=== PATIENT | female | born 2000 | race Hispanic/Latino ===

== ENCOUNTER 2022-05-21 22:13 | Emergency (ER) | payer MEDICAID, OTHER ==
[~2022-05-21] VITALS: Ht 152.4 cm; Wt 59.9 kg
[2022-05-21 22:40] LABS: BILIRUBIN,URINE NEGATIVE (NEGATIVE); COLOR,URINE YELLOW (YELLOW); GLUCOSE, URINE (UA) NEGATIVE (NEGATIVE); KETONES,URINE NEGATIVE (NEGATIVE); LEUKOCYTE ESTERASE ,URINE MODERATE (NEGATIVE); NITRATE,URINE NEGATIVE (NEGATIVE); OCCULT BLOOD,URINE LARGE (NEGATIVE); PROTEIN,URINE 30 mg/dL (NEGATIVE); UROBILINOGEN,URINE 0.2 mg/dL (0.2-1.0)
[2022-05-21 22:43] LABS: APPEARANCE,URINE HAZY (CLEAR)
[2022-05-21 22:57] LABS: BACTERIA,URINE Few /HPF (None Seen); SQUAMOUS EPITHELIAL CELL,UR 0-2 /HPF (0-2)
[2022-05-21] MEDS ORDERED: PHEN-847 PO (23:06)
[2022-05-21] MEDS ORDERED: IBUP-2070 PO (23:06)
[2022-05-21] MEDS ORDERED: CEPH500B PO (23:06)
[2022-05-21] MEDS ORDERED: LIDOCAINE HCL 1% 10 ML VIAL ONE (23:07)
[2022-05-21] MEDS ORDERED: IBUPROFEN 600 MG TABLET ONE (23:07)
[2022-05-21] MEDS ORDERED: CEFTRIAXONE 1G VIAL ONE (23:07)
[2022-05-21] MEDS ORDERED: PHENAZOPYRIDINE HCL 200 MG TABLET ONE (23:09)
[2022-05-21 23:26] VITALS: BP 105/79
[2022-05-21] MEDS ORDERED: IBUPROFEN 600 MG TABLET PO ONE (23:30)
[2022-05-21] MEDS ORDERED: PHENAZOPYRIDINE HCL 200 MG TABLET PO ONE (23:30)
[2022-05-21] MEDS ORDERED: CEFTRIAXONE 1G VIAL IM ONE (23:30)
== END 2022-05-21 23:28 | disposition home or self-care (01) ==
LOC: EDH 22:13
DX: N39.0 Urinary tract infection, site not specified (principal)
CPT/HCPCS: 99283; 87077; 87088; 87186; 81001; 81025; 96372; J0696; J3490

== ENCOUNTER 2024-09-17 06:28 | Emergency (ER) | payer SELFPAY ==
[~2024-09-17] VITALS: Ht 152.4 cm; Wt 59.0 kg
[~2024-09-17 06:28] MED LIST: CEPH500B PO; IBUP-2070 PO; PHEN-847 PO
[2024-09-17 07:06] LABS: COVID19 (SARS ANTIGEN RAPID) PRESUMPTIVE NEGATIVE (NEGATIVE); INFLUENZA TYPE A Negative For Type A (NEGATIVE); INFLUENZA TYPE B Negative For Type B (NEGATIVE)
--- NOTE | 2024-09-17 07:19 | ERN ---
General Chief Complaint: Sore Throat Stated Complaint: SORE THROAT Time Seen by MD: 06:46 History of Present Illness Initial Comments Otherwise healthy 23-year-old female who presents for sore throat and body aches for 48 hours. Patient reports sore throat increased with swallowing. No cough or congestion. No rhinorrhea. No ear discomfort. No abdominal pain vomiting or diarrhea. Decreased p.o. intake due to the sore throat but he was able to drink liquids. No respiratory distress. Allergies: Coded Allergies: No Known Allergies (Unverified Allergy, Unknown, 05/21/22) Home Meds Active Scripts Phenazopyridine HCl (Pyridium) 200 Mg Tab, 200 MG PO TIDPC, #15 TAB TAKE WITH FOOD TO PREVENT STOMACH UPSET. Prov:CHIKIS JULIAN MD 05/21/22 Ibuprofen (Ibuprofen) 600 Mg Tablet, 600 MG PO Q6H PRN for PAIN, #30 TAB Prov:CHIKIS JULIAN MD 05/21/22 Cephalexin Monohydrate (Keflex) 500 Mg Cap, 500 MG PO BID for 5 Days, #10 CAP Prov:CHIKIS JULIAN MD 05/21/22 Past Medical History Past Medical History: No Pertinent History Past Surgical History: None Social History Social History: Drugs, ETOH, Lives with family Female( History) History: Not Applicable LMP: Sep 14, 2024 ROS Dictation CONSTITUTIONAL: No chills, no fever, no weakness, no diaphoresis, no malaise. HEAD/FACE: No signs of trauma. EENT: Sore throat RESPIRATORY: No cough, no orthopnea, no SOB, no stridor, no wheezing. CARDIOVASCULAR: No chest pain, no edema, no palpitations, no syncope. GASTROINTESTINAL/ABDOMINAL: No abdominal pain, no constipation, no diarrhea, no nausea, no vomiting. GENITOURINARY: No abnormal discharge, no dysuria, no frequent urination, no hem aturia. No complaints of pain in the genitals. MUSCULOSKELETAL: No back pain, no gout, no joint pain, no joint swelling, no mu scle pain, no muscle stiffness, no neck pain. INTEGUMENTARY: No change in color, no change in hair/nails, no dryness, no lesion, no lumps, no rash. NEUROLOGICAL/PSYCH: No anxiety, not depressed, no emotional problem, no headache, no numbness, no pre-existing deficit, no history of seizures, no tremors, no weakness. HEMATOLOGIC/LYMPHATIC: Not anemic, no history of blood clots, no apparent bleeding, no bruising, glands not swollen. All Systems Negative, Except as Noted. Physical Exam Physical Exam Dictation VITAL SIGNS: Reviewed. GENERAL APPEARANCE: Alert, oriented x3, no acute distress, nontoxic HEAD AND FACE: Non-traumatic. EYES: PERRL, pink conjunctivas, eyelid no trauma, anterior chamber clear. EARS: Pinnas intact and no signs of trauma or erythema. Ear canals clear and no discharge. TMs no erythema. NOSE: No discharge, no bleeding. OROPHARYNX: Bilateral tonsillar exudates, uvula is midline, some cervical chain lymphadenopathy bilaterally. No obvious abscesses. Nontoxic. NECK: Supple, non-tender, no thyromegaly, no masses, no JVD, no bruits. BREAST: Deferred. CHEST: No tenderness, no crepitus, no paradoxical movement, no retractions. LUNGS: Clear, well-ventilated, symmetric, no rales, no wheezing, no rhonchi, no stridor, good breath sounds bilaterally. HEART: Regular rate, regular rhythm, no murmur, no gallops. VASCULAR: No peripheral edema. ABDOMEN: Soft, positive bowel sounds, nondistended, no guarding, nontender, no rebound, no masses no hepatomegaly, no splenomegaly, no Banerjee's sign, no hernias. RECTAL: Deferred. GENITAL: Deferred. NEUROLOGICAL: Normal speech, gross motor function intact, gross sensory function intact. MUSCULOSKELETAL: Neck nontender, full range of motion, back nontender, full range of motion. EXTREMITIES: Nontender, full range of motion. SKIN: Color pink, dry, no turgor, no rash, no lacerations, no abrasions, no contusions. LYMPHATICS: Deferred. Results Laboratory and Microbiology Lab and Micro Result Laboratory Tests Test 09/17/24 06:37 09/17/24 06:40 Group A Streptococcus Rapid negative (NEGATIVE) Influenza Type A Antigen Negative For Type A Influenza Type B Antigen Negative For Type B SARS-CoV-2 Antigen (Rapid) PRESUMPTIVE NEGATIVE MDM CC: Sore throat Historian: Patient Comorbidities: None Limitations by social determinants of health: None Differential diagnosis: Viral versus bacterial pharyngitis, viral URI, abscess, other Vital signs: Mild tachycardia otherwise stable. Physical exam: Bilateral tonsillar swelling with mild exudates. No abscess. No clinical signs of dehydration. P.o. tolerant. Nontoxic in appearance. The flu, COVID, and strep swabs per my independent interpretation are unremarkable. Negative. Symptoms are consistent with a viral pharyngitis. Patient given a dose of IM dexamethasone here in the ER for swelling and inflammation. Patient given ibuprofen. Patient denies We will discharge with symptomatic care including ibuprofen Tylenol. We will recommend PCP follow up. ED Course Orders Procedure Category Date Status Time Rapid (Group A Strep) LAB 09/17/24 Complete 06:33 Covid19 (Sars Antigen LAB 09/17/24 Complete Rapid) 06:40 Influenza Type A & B, LAB 09/17/24 Complete Rapid 06:40 Dexamethasone 4mg/Ml PHA 09/17/24 Verified 1ml Vial (Dexametha 07:30 Ibuprofen 800 Mg Tab PHA 09/17/24 Verified (Motrin) 07:30 Vital Signs Date Time Temp Pulse Resp B/P (MAP) Pulse Ox O2 Delivery O2 Flow Rate FiO2 09/17/24 06:49 99.0 104 18 130/77 98 Room Air* 0 21 09/17/24 06:30 99.1 100 18 137/93 96 Room Air 0 DX & DISP Disposition: Discharge Departure Impression: Primary Impression: Viral pharyngitis Condition: Stable Additional Instructions: Your symptoms are consistent with viral pharyngitis. This is a sore throat caused by a viral infection. This type of infection does not respond to antibiotics. Your flu, COVID, and strep swabs were negative. Be sure to get plenty of rest and stay hydrated. Drink plenty of water, an electrolyte solution such as Gatorade, herbal teas, and warm broths. Avoid acidic and sugary drinks that may irritate your throat. Use [id number] pain and fever medications. You can alternate 1000 mg of Tylenol and 800 mg of ibuprofen every 4 hours as needed for pain or discomfort. You can seizure throat with gargling warm salt water several times daily. You can use [id number] throat lozenges. You can use a cool mist humidifier in your room to keep the air moist. Eat soft, bland foods that are easy to swallow, such as soups, yogurt, and applesauce. Avoid spicy, crunchy, and acidic foods. Viral infections often improve in 5-7 days. If you have pain for longer than that please follow up with her primary doctor. Please return to the emergency department if you have any severe throat pain with difficulty swallowing, swelling to her neck or face, difficulty breathing, or any other concerning symptom. Referrals: SELF,REFERRAL (PCP) ELENA SYED DO Sep 17, 2024 07:19
[2024-09-17 07:43] VITALS: BP 123/84; PULSE 103; RESP 18; TEMP 99.2; O2SAT 96
[2024-09-17] MEDS: ibuPROFEN 800 MG TAB PO ONE (07:47)
[2024-09-17] MEDS: dexaMETHasone SOD PHOSPHATE 4 MG/ML 1ML VIAL IM ONE (07:48)
== END 2024-09-17 08:21 | disposition home or self-care (01) ==
LOC: EDH 06:28
DX: J02.8 Acute pharyngitis due to other specified organisms (principal); B97.89 Other viral agents as the cause of diseases classified elsewhere; Z20.822 Contact with and (suspected) exposure to COVID-19; Z79.899 Other long term (current) drug therapy
CPT/HCPCS: 99283; 87426; 87880; 87804 ×2; 96372; J1100